=== PATIENT | female | born 1965 | race Caucasian/White ===

== ENCOUNTER 2016-12-29 13:42 | Emergency (ER) | payer OTHER ==
[~2016-12-29] VITALS: Ht 152.4 cm; Wt 59.0 kg
[2016-12-29 13:58] VITALS: BP 129/72
[2016-12-29] MEDS ORDERED: ACETAMINOPHEN 325 MG TABLET PO ONE (14:30)
[2016-12-29] MEDS ORDERED: ACETAMINOPHEN 325 MG TABLET ONE (14:43)
== END 2016-12-29 15:50 | disposition home or self-care (01) ==
LOC: ER 13:43
DX: R07.81 Pleurodynia (principal); W01.0XXA Fall on same level from slipping, tripping and stumbling without subsequent striking against object, initial encounter; Y93.89 Activity, other specified; Y92.218 Other school as the place of occurrence of the external cause; Y99.0 Civilian activity done for income or pay
CPT/HCPCS: 71100; 99284; A4606; Z7610

== ENCOUNTER 2022-02-04 15:22 | Emergency (ER) | payer MEDICAID, OTHER ==
[~2022-02-04] VITALS: Ht 154.9 cm; Wt 68.0 kg
--- NOTE | 2022-02-04 15:50 | NUR ---
[facility] [employer] ARCHITECT AT BEDSIDE FOR BLOOD DRAW
[2022-02-04 16:13] LABS: CALCIUM, SERUM 8.8 mg/dL (8.5-10.1); CARBON DIOXIDE 26 mmol/L (21-32); CHLORIDE 104 mmol/L (98-107); CREATININE 0.8 mg/dL (0.6-1.3); GLUCOSE 130 mg/dL (74-106); POTASSIUM 3.3 mmol/L (3.5-5.1); SODIUM SERUM 139 mmol/L (136-145); UREA NITROGEN, BLOOD 11 mg/dL (7-18)
[2022-02-04 16:18] LABS: ALANINE AMINOTRANSFERASE 53 U/L (12-78); ALBUMIN 3.6 g/dL (3.4-5.0); ALKALINE PHOSPHATASE 206 U/L (46-116); ASPARTATE AMINOTRANSFERASE 34 U/L (15-37); BILIRUBIN,DIRECT 0.1 mg/dL (0.0-0.2); BILIRUBIN,TOTAL 0.3 mg/dL (0.2-1.0); TOTAL PROTEIN, SERUM 7.3 g/dL (6.4-8.2)
[2022-02-04 17:12] LABS: BASOPHILS % (AUTO) 0.4 % (0.0-2.0); HEMATOCRIT 38 % (33-45); HEMOGLOBIN 12.5 g/dL (11.5-14.8); LYMPHOCYTES # (AUTO) 2.3 K/uL (0.8-4.8); LYMPHOCYTES % (AUTO) 28.2 % (20.0-44.0); MEAN CORPUSCULAR HGB CONC 33 g/dl (31.0-36.0); MEAN CORPUSCULAR VOLUME 82 fL (82-100); MONOCYTES # (AUTO) 0.6 K/uL (0.1-1.30); MONOCYTES % (AUTO) 7.3 % (2.0-12.0); NEUTROPHILS # (AUTO) 5.1 K/uL (1.8-8.9); NEUTROPHILS % (AUTO) 62.1 % (43.0-81.0); PLATELET COUNT (AUTO) 271 K/uL (150-450); RED BLOOD CELL COUNT(AUTO) 4.67 MIL/uL (4.0-5.2); WHITE BLOOD COUNT (AUTO) 8.3 K/uL (4.3-11.0)
[2022-02-04] MEDS ORDERED: IBUP-1955 PO (19:16)
[2022-02-04] MEDS ORDERED: AMLO-212 PO (19:16)
[2022-02-04] MEDS ORDERED: AMLODIPINE BESYLATE 5 MG TABLET ONE (19:22)
[2022-02-04] MEDS ORDERED: IBUPROFEN 600 MG TABLET ONE (19:23)
[2022-02-04] MEDS ORDERED: IBUPROFEN 600 MG TABLET PO ONE (19:30)
[2022-02-04] MEDS ORDERED: AMLODIPINE BESYLATE 5 MG TABLET PO ONE (19:30)
--- NOTE | 2022-02-04 19:31 | NUR ---
Patient discharged to home in stable condition. Written and verbal after care instructions given. Patient verbalizes understanding of instruction. Pt ambulatory with a steady gait
[2022-02-04 19:32] VITALS: BP 144/81
== END 2022-02-04 19:32 | disposition home or self-care (01) ==
LOC: ER 15:35
DX: R07.89 Other chest pain (principal); I10 Essential (primary) hypertension; M19.90 Unspecified osteoarthritis, unspecified site
CPT/HCPCS: 36415; 71100-TC; 80048-TC; 80076-TC; 83690-TC; 84484-TC; 85025-TC; 85378-TC

== ENCOUNTER 2024-08-01 11:28 | Emergency (ER) | payer MEDICAID, OTHER ==
[~2024-08-01 11:28] MED LIST: AMLO-212 PO; IBUP-1955 PO
== END 2024-08-01 11:49 | disposition left against medical advice (07) ==
LOC: ER 11:34
DX: R10.9 Unspecified abdominal pain (principal); Z53.21 Procedure and treatment not carried out due to patient leaving prior to being seen by health care provider